=== PATIENT | male | born 1965 | race Caucasian/White ===

== ENCOUNTER 2022-05-11 00:23 | Emergency (ER) | payer BC ==
[2022-05-11 00:47] VITALS: BP 155/101
[2022-05-11 00:54] VITALS: BP 137/82
[2022-05-11 01:00] VITALS: BP 134/82
[2022-05-11 01:15] VITALS: BP 136/84
[2022-05-11 01:30] VITALS: BP 136/81
[2022-05-11 02:00] VITALS: BP 136/81
[2022-05-11 02:31] LABS: URINE BLOOD DIPSTICK LARGE (NEGATIVE); URINE COLOR BROWN; URINE KETONE TRACE mg/dL (NEGATIVE); URINE LEUK ESTERASE TRACE (NEGATIVE); URINE PROTEIN - DIPSTICK 100 mg/dL (NEG-TRACE); URINE UROBILINOGEN - DIPSTICK 0.2 E.U./dL (0.2)
[2022-05-11 02:45] LABS: URINE BILIRUBIN - DIPSTICK SMALL (NEGATIVE); URINE NITRITE - DIPSTICK POSITIVE (Negative)
[2022-05-11 02:46] LABS: URINE BACTERIA MANY hpf; URINE EPITHELIAL CELLS MODERATE EPI/hpf (0-FEW); URINE GLUCOSE - DIPSTICK NEGATIVE (NEGATIVE); URINE RBC >100 RBC/hpf (0-5)
[2022-05-11] MEDS ORDERED: CIPROFLOXACN500 MG PO (17:41)
== END 2022-05-11 02:00 | disposition home or self-care (01) | DRG 699 ==
LOC: ED 00:23
PROVIDERS: Emergency Medicine
DX: T83.098A Other mechanical complication of other urinary catheter, initial encounter (principal); N39.0 Urinary tract infection, site not specified; F17.200 Nicotine dependence, unspecified, uncomplicated; Y84.6 Urinary catheterization as the cause of abnormal reaction of the patient, or of later complication, without mention of misadventure at the time of the procedure

== ENCOUNTER 2022-05-11 17:26 | Emergency (ER) | payer BC ==
[2022-05-11] VITALS (18 sets, daily range): BP systolic 112–146; BP diastolic 60–87
[~2022-05-11] VITALS: Ht 172.7 cm; Wt 97.7 kg
[2022-05-11] MEDS ORDERED: CIPROFLOXACN500 MG PO (17:41)
[2022-05-11 18:41] LABS: HEMATOCRIT 42.5 % (39.0-50.0); HEMOGLOBIN 13.8 g/dl (14.0-18.0); IMMATURE GRANULOCYTES 0.2 % (0.0-5.0); MEAN CELL VOLUME 86.6 fL CALC (80.0-100.0); MEAN CORPUSCULAR HGB 28.1 pG CALC (26.0-32.0); MEAN CORPUSCULAR HGB CONC 32.5 g/dL CAL (32.0-36.0); NEUT# 8.76 thou/uL (1.82-7.42); RED BLOOD COUNT 4.91 mill/uL (4.70-6.10); RED CELL DISTRI WIDTH 14.7 % (11.5-15.5)
[2022-05-11 18:48] LABS: ALBUMIN 4.2 g/dL (3.2-5.0); ALKALINE PHOSPHATASE 86 u/l (38-126); ANION GAP 12 (6-22 (CALC)); BILIRUBIN, TOTAL 0.4 mg/dL (0.0-1.4); BUN 12 mg/dL (9-20); BUN/CREATININE RATIO 15 (12-20 (CALC)); CARBON DIOXIDE 26 mmol/l (22-30); CHLORIDE 105 mmol/l (95-108); CREATININE 0.8 mg/dL (0.7-1.3); GFR FOR AFR.AMER. > 60 ML/MIN (>=60 (CALC)); GFR OTHER RACES > 60 ML/MIN (>=60 (CALC)); POTASSIUM 3.9 mmol/l (3.5-5.1); SGOT/AST 23 u/l (17-59); SODIUM 139 mmol/l (137-146); TOTAL PROTEIN 7.5 g/dL (6.3-8.2)
== END 2022-05-11 22:06 | disposition short-term general hospital (02) | DRG 700 ==
LOC: ED 17:26
PROVIDERS: Family Medicine
DX: N28.89 Other specified disorders of kidney and ureter (principal); N39.0 Urinary tract infection, site not specified; F17.220 Nicotine dependence, chewing tobacco, uncomplicated; Z96.0 Presence of urogenital implants
CPT/HCPCS: Q9967

== ENCOUNTER 2024-11-15 12:43 | Inpatient (IN) | payer BC ==
[2024-11-15] VITALS (22 sets, daily range): BP systolic 88–126; BP diastolic 54–83
[~2024-11-15] VITALS: Ht 170.2 cm; Wt 57.8 kg
[~2024-11-15 12:43] MED LIST: BERBERINE PO; CARAFATE1 GM PO; CIPROFLOXACN500 MG PO; CURCUMIN PO; DILAUDID4 MG PO; ELIQUIS5 MG PO; INLYTA5 MG PO; LEVOTHYROXIN25 MC1 PO; MILK THISTLE1000 MG PO; PROCHLORPERAZINE5 M1 PO; PROTONIX40 M2 PO; SENNA/DSS1 TAB PO; XARELTO STARTER1 TAB PO
[2024-11-15] MEDS ORDERED: ASPIRIN 81 MG/TAB PO ONE (12:50)
[2024-11-15] MEDS ORDERED: NITROGLYCERIN 0.4 MG/TAB SL ONE (12:55)
[2024-11-15 13:07] LABS: BASO% 0.4 % (0-3); EOS% 0.7 % (0-8); IMMATURE GRANULOCYTES 0.2 % (0.0-5.0); LYMPH% 15.1 % (15-41); MEAN CELL VOLUME 87.5 fL CALC (80.0-100.0); MEAN CORPUSCULAR HGB CONC 33.2 g/dL CAL (32.0-36.0); MONO% 19.3 % (2-13); NEUT# 12.25 thou/uL (1.82-7.42); NEUT% 64.3 % (42-76); RED BLOOD COUNT 4.48 mill/uL (4.70-6.10); RED CELL DISTRI WIDTH 16.2 % (11.5-15.5)
[2024-11-15 13:10] LABS: HEMATOCRIT 39.2 % (39.0-50.0)
[2024-11-15 13:19] LABS: ALKALINE PHOSPHATASE 118 u/l (38-126); BUN 20 mg/dL (9-20); BUN/CREATININE RATIO 18 (12-20 (CALC)); CARBON DIOXIDE 25 mmol/l (22-30); CHLORIDE 93 mmol/l (95-108); CREATININE 1.1 mg/dL (0.7-1.3); ESTIMATED GFR 77 ML/MIN (>=90 (CALC)); POTASSIUM 3.8 mmol/l (3.5-5.1)
[2024-11-15 13:20] LABS: ALBUMIN 2.4 g/dL (3.2-5.0); ANION GAP 9 (6-22 (CALC)); BILIRUBIN, TOTAL 0.5 mg/dL (0.2-1.3); SGOT/AST 45 u/l (17-59); SODIUM 123 mmol/l (137-146)
[2024-11-15] MEDS ORDERED: AZITHROMYCIN 500 MG in SODIUM CHLORIDE 0.9% 500 ML IV ONE (13:55)
[2024-11-15] MEDS ORDERED: SODIUM CHLORIDE 0.9% 1,000 ML IV ONE ×2 (13:55→15:50)
[2024-11-15] MEDS ORDERED: cefTRIAXone SODIUM 2 GM in SODIUM CHLORIDE 0.9% 100 ML IV ONE (13:55)
--- NOTE | 2024-11-15 14:25 | NUR ---
PATIENT TO ER ROOM 10 WITH STEADY GAIT DUE TO CHEST PAIN THAT STARTED APPROX [id number] LAST NIGHT.
--- NOTE | 2024-11-15 15:00 | NUR ---
PATIENT LYING IN BED WITH HOB ELEVATED. SON AT BEDSIDE. NO ACUTE DISTRESS NOTED AT THIS TIME.
[2024-11-15] MEDS ORDERED: HYDROmorphone HCL 2 MG/AMP IV ONE (15:40)
[2024-11-15] MEDS ORDERED: ONDANSETRON HCl 4 MG/2 ML SDV IV ONE (15:40)
[2024-11-15] MEDS ORDERED: Polyethylene Glycol 3350 17 GM/PKT PO PRN (15:45)
[2024-11-15] MEDS ORDERED: MELATONIN 3 MG/TAB PO PRN (15:45)
[2024-11-15] MEDS ORDERED: LACTATED RINGER'S 1,000 ML IV PRN (15:45)
[2024-11-15] MEDS ORDERED: ACETAMINOPHEN 325 MG/TAB PO PRN (15:45)
[2024-11-15] MEDS ORDERED: IPRATROPIUM-Albuterol 0.5MG-2.5MG/3 ML NEB PRN (15:45)
--- NOTE | 2024-11-15 16:00 | NUR ---
NO ACUTE DISTRESS NOTED. BED LOCKED, IN LOW POSITION, CALL LIGHT WITHIN REACH.
--- NOTE | 2024-11-15 17:47 | NUR ---
PT ARRIVED TO THE UNIT VIA WHEELCHAIR TRANSPORT. PT AMBULATED TO THE BET WITH STAND BY ASSIST, RESPIRATIONS ARE EVEN AND UNLABORED, LUNGS ARE DIM THROUGHOUT, BOWEL SOUNDS ACTIVE, PEDAL PULSES PALPABLE TO TOUCH WITH 1+ NON-PITTING EDEMA NOTED TO RIGHT ANKLE. PT REPORTS FEELING PAIN WHEN HE INHALES.
--- NOTE | 2024-11-15 17:52 | NUR ---
PATIENT TO [facility] WITH TELE NUMBER [id number]
[2024-11-15] MEDS ORDERED: PIPERACILLIN Sodium-Tazobactam 3.375 GM in SODIUM CHLORIDE 0.9% 100 ML IV SCH (18:00)
[2024-11-15] MEDS ORDERED: CABOMETYX40 MG PO (18:02)
[2024-11-15] MEDS ORDERED: HYDROmorphone HCL 2 MG/TAB PO PRN (20:25)
[2024-11-15] MEDS ORDERED: ENOXAPARIN SODIUM 40 MG/0.4 ML SYR SC SCH (21:00)
[2024-11-16] VITALS (8 sets, daily range): BP systolic 91–107; BP diastolic 54–59
[2024-11-16 05:05] LABS: BASO% 0.5 % (0-3); EOS% 0.8 % (0-8); IMMATURE GRANULOCYTES 0.4 % (0.0-5.0); LYMPH% 14.2 % (15-41); MEAN CELL VOLUME 89.5 fL CALC (80.0-100.0); MEAN CORPUSCULAR HGB 29.6 pG CALC (26.0-32.0); MEAN CORPUSCULAR HGB CONC 33.1 g/dL CAL (32.0-36.0); MONO% 19.4 % (2-13); NEUT# 12.69 thou/uL (1.82-7.42); NEUT% 64.7 % (42-76); RED BLOOD COUNT 3.61 mill/uL (4.70-6.10); RED CELL DISTRI WIDTH 16.4 % (11.5-15.5)
[2024-11-16 05:09] LABS: HEMOGLOBIN 10.7 g/dl (14.0-18.0)
[2024-11-16 05:10] LABS: HEMATOCRIT 32.3 % (39.0-50.0)
[2024-11-16 05:34] LABS: BILIRUBIN, TOTAL 0.4 mg/dL (0.2-1.3); CREATININE 0.9 mg/dL (0.7-1.3); MAGNESIUM 1.4 mg/dL (1.6-2.3); POTASSIUM 4.2 mmol/l (3.5-5.1)
[2024-11-16 05:36] LABS: ALBUMIN 1.7 g/dL (3.2-5.0); TOTAL PROTEIN 3.9 g/dL (6.3-8.2)
--- NOTE | 2024-11-16 07:00 | NUR ---
RECEIVED REPORT FROM KODY. PT RESTING IN BED WITH IVF INFUSING TO RIGHT SIDED CHEST PORT ACCESSED YESTERDAY. PT PLEASANT WITH GENERALIZED WEAKNESS AND MALAISE. LUNGS DIMINISHED THROUGHOUT. ENC COUGH AND DEEP BREATHING EXERCISES. PT WITH GENERAL C/O PAIN DUE TO CHRONIC PAIN IN PAST. WILL MEDICATE AND CONTINUE TO MONITOR. TELE CHECKED AND NSR 82.
[2024-11-16] MEDS ORDERED: MAGNESIUM SULFATE HEPTAHYDRATE 100 ML IV SCH (09:00)
[2024-11-16] MEDS ORDERED: SODIUM CHLORIDE 0.9% 1,000 ML IV PRN (09:55)
[2024-11-16] MEDS ORDERED: PIPERACILLIN Sodium-Tazobactam 3.375 GM in SODIUM CHLORIDE 0.9% 100 ML IV SCH (12:00)
--- NOTE | 2024-11-16 12:00 | NUR ---
PT RESTING IN BED WITH MALAISE. P.T. ORDERED TO HELP WITH STRENGTHENING. FAMILY VISITING AT BEDSIDE AND UPDATED ON POC. IV ABX CONTINUE VIA RIGHT UPPER CHEST MEDIPORT ALONG WITH IVF. PAIN MANAGED WITH DILAUDID PO ORDERED. BILATERAL LE TEDS PLACED. WILL CONTINUE TO MONITOR.
[2024-11-16] MEDS ORDERED: LEVOTHYROXIN50 MCG PO (12:11)
[2024-11-16] MEDS ORDERED: PIPERACILLIN Sodium-Tazobactam 4.5 GM in SODIUM CHLORIDE 0.9% 100 ML IV SCH ×2 (13:00→20:00)
--- NOTE | 2024-11-16 15:04 | NUR ---
PT CONTINUES TO REST WITHOUT CHANGES TO REPORT. TOLERATING IV ABX.
--- NOTE | 2024-11-16 17:30 | NUR ---
PT REMAINS RESTING IN BED WITH FAMILY AT BEDSIDE. IC REMAINS PATENT AND NO CHANGES TO REPORT.
[2024-11-17] VITALS (7 sets, daily range): BP systolic 87–106; BP diastolic 51–68
[2024-11-17] MEDS ORDERED: PATIENT' OWN MED 1 EA DOSE PO SCH (04:00)
[2024-11-17 05:09] LABS: BASO% 0.4 % (0-3); EOS% 3.3 % (0-8); HEMATOCRIT 29.7 % (39.0-50.0); HEMOGLOBIN 10.1 g/dl (14.0-18.0); IMMATURE GRANULOCYTES 0.3 % (0.0-5.0); LYMPH% 11.6 % (15-41); MEAN CELL VOLUME 87.6 fL CALC (80.0-100.0); MEAN CORPUSCULAR HGB 29.8 pG CALC (26.0-32.0); MONO% 18.6 % (2-13); NEUT# 10.22 thou/uL (1.82-7.42); NEUT% 65.8 % (42-76); RED BLOOD COUNT 3.39 mill/uL (4.70-6.10); RED CELL DISTRI WIDTH 16.3 % (11.5-15.5)
[2024-11-17 05:28] LABS: ALBUMIN 1.4 g/dL (3.2-5.0); BILIRUBIN, TOTAL 0.4 mg/dL (0.2-1.3); POTASSIUM 3.9 mmol/l (3.5-5.1); TOTAL PROTEIN 3.6 g/dL (6.3-8.2)
[2024-11-17 05:30] LABS: MAGNESIUM 1.9 mg/dL (1.6-2.3)
[2024-11-17] MEDS ORDERED: LEVOTHYROXINE SODIUM 50 MCG/TAB PO SCH (06:00)
--- NOTE | 2024-11-17 20:00 | NUR ---
RECEIVED REPORT FROM DAY NURSE, PATIENT RESTING IN BED, FAMILY IN ROOM. C/O GEN PAIN PS 08/27 WILL MEDICATE, IV INFUSING WELL ON RT CHEST PORT NS # 100CC/HR, SHALLOW UNLABORED BREATHING, DIMINISHED LUNG SOUNDS, CALL LIGHT IN REACHED.
[2024-11-18] VITALS (9 sets, daily range): BP systolic 88–106; BP diastolic 50–68
--- NOTE | 2024-11-18 00:33 | NUR ---
BP RECHEKED MANUALLY , PATIENT NOT IN DISTRESS, CALL LIGHT IN REACHED.
--- NOTE | 2024-11-18 04:19 | NUR ---
PATIENT ASSISTED TO THE BATHROOM. VOIDED, ASSISTED BACK IN BED, DUE [employer] CURRENTLY INFUSING CALL LIGHTWITHIN REACHED.
[2024-11-18 05:56] LABS: ALBUMIN 1.5 g/dL (3.2-5.0); BILIRUBIN, TOTAL 0.5 mg/dL (0.2-1.3); MAGNESIUM 1.7 mg/dL (1.6-2.3); POTASSIUM 4.1 mmol/l (3.5-5.1); TOTAL PROTEIN 3.7 g/dL (6.3-8.2)
[2024-11-18 06:18] LABS: BASO% 0.7 % (0-3); EOS% 7.2 % (0-8); HEMATOCRIT 31.4 % (39.0-50.0); HEMOGLOBIN 10.7 g/dl (14.0-18.0); IMMATURE GRANULOCYTES 0.2 % (0.0-5.0); LYMPH% 15.3 % (15-41); MEAN CELL VOLUME 87.2 fL CALC (80.0-100.0); MEAN CORPUSCULAR HGB 29.7 pG CALC (26.0-32.0); MEAN CORPUSCULAR HGB CONC 34.1 g/dL CAL (32.0-36.0); MONO% 16.4 % (2-13); NEUT# 8.67 thou/uL (1.82-7.42); NEUT% 60.2 % (42-76); RED BLOOD COUNT 3.6 mill/uL (4.70-6.10); RED CELL DISTRI WIDTH 16.4 % (11.5-15.5)
--- NOTE | 2024-11-18 07:27 | NUR ---
SHIFT CHANGE REPORT, PT SLEEPING SOUNDLY IN LEFT-SIDED POSITION, NO SIGN DISCOMFORT, TELE MONITOR IN PLACE, CALL TORREZ IN REACH AND BED LOCKED IN LOWEST POSITION.
--- NOTE | 2024-11-18 12:00 | NUR ---
SLEEPING, BREATHING STABLE, CALL TORREZ IN REACH.
--- NOTE | 2024-11-18 16:00 | NUR ---
CONDITION STABLE, FAMILY IN ROOM
--- NOTE | 2024-11-18 20:00 | NUR ---
PT RESTING FAMILY AT BEDSIDE NO DISTRESS NOTED. PT STATED DILAUDID PO HELPED WITH HIS PAIN. PT HAS A RIGHT CHEST PORT WITH CONTINUES FLUIDS GOING. SKIN INTACT SCATTERED BRUISING. CALL LIGHT WITHIN REACH. PLAN OF CARE ONGOING.
[2024-11-18] MEDS ORDERED: SODIUM CHLORIDE 0.9% 10 ML SYR IV PRN (21:50)
[2024-11-18] MEDS ORDERED: HEPARIN SODIUM FLUSH (PORCINE) 100 UNITS/ML 3 ML SYR IV PRN (21:50)
[2024-11-18] MEDS ORDERED: SODIUM CHLORIDE 0.9% 10 ML SYR IV SCH (21:50)
--- NOTE | 2024-11-19 00:15 | NUR ---
PT RESTING NO DISTRESS NOTED ON EXAM. CALL LIGHT WITHIN REACH. IV FLUIDS ONGOING.
--- NOTE | 2024-11-19 04:00 | NUR ---
PT RESTING NO DISTRESS NOTED ON EXAM. RIGHT CHEST PORT FLUSHED AND LAB TUBES COLLECTED. IV ABX GIVEN. CALL LIGHT WITHIN REACH. PLAN OF CARE ONGOING.
[2024-11-19 05:01] VITALS: BP 100/53
[2024-11-19 05:05] LABS: ALBUMIN 1.4 g/dL (3.2-5.0); BILIRUBIN, TOTAL 0.4 mg/dL (0.2-1.3); CREATININE 0.9 mg/dL (0.7-1.3); MAGNESIUM 1.7 mg/dL (1.6-2.3); POTASSIUM 3.9 mmol/l (3.5-5.1); TOTAL PROTEIN 3.5 g/dL (6.3-8.2)
[2024-11-19 05:18] LABS: BASO% 0.7 % (0-3); EOS% 9.5 % (0-8); HEMATOCRIT 30.1 % (39.0-50.0); HEMOGLOBIN 10.3 g/dl (14.0-18.0); IMMATURE GRANULOCYTES 0.2 % (0.0-5.0); LYMPH% 15.1 % (15-41); MEAN CELL VOLUME 87.5 fL CALC (80.0-100.0); MEAN CORPUSCULAR HGB 29.9 pG CALC (26.0-32.0); MEAN CORPUSCULAR HGB CONC 34.2 g/dL CAL (32.0-36.0); MONO% 14.3 % (2-13); NEUT# 7.39 thou/uL (1.82-7.42); NEUT% 60.2 % (42-76); RED BLOOD COUNT 3.44 mill/uL (4.70-6.10); RED CELL DISTRI WIDTH 16.6 % (11.5-15.5)
[2024-11-19 07:31] VITALS: BP 93/52
--- NOTE | 2024-11-19 08:00 | NUR ---
Patient sitting in bed eating breakfast with son at bedside.
--- NOTE | 2024-11-19 09:00 | NUR ---
Patient and son requesting to discuss PO pain medication order with physician as prescribed PO Dilaudid 4mg "not working" per patient and son.
[2024-11-19 11:15] VITALS: BP 93/54
--- NOTE | 2024-11-19 12:00 | NUR ---
Patient watching television.
[2024-11-19] MEDS ORDERED: LEVOFLOXACIN500MG PO (12:54)
[2024-11-19 15:11] VITALS: BP 112/68
--- NOTE | 2024-11-19 16:29 | NUR ---
Discharge instructions reviewed with patient and family whom verbalized understanding. Patient's right chest port de-accessed by TOLU Rae.
--- NOTE | 2024-11-20 13:38 | NUR ---
Discharge follow up call completed 11/20/24. Patient states he is feeling a little better and is resting , trying to get stronger. Patient is taking prescribed medication as directed. Patient states he i-will contact his PCP to schedule a follow up appointment. No needs or concrns are verbalized by patient at this time.
== END 2024-11-19 16:58 | disposition home or self-care (01) | DRG 871 ==
LOC: ED 12:43 → ED-I 14:20 → ED 15:41 → MS2 15:42
PROVIDERS: Family Medicine; Nurse Practitioner Family; ADMIT Internal Medicine; ATTEND Internal Medicine
DX: A41.9 Sepsis, unspecified organism (principal); J18.9 Pneumonia, unspecified organism; C64.1 Malignant neoplasm of right kidney, except renal pelvis; C79.51 Secondary malignant neoplasm of bone; C78.00 Secondary malignant neoplasm of unspecified lung; R65.20 Severe sepsis without septic shock; E03.9 Hypothyroidism, unspecified; Z90.5 Acquired absence of kidney; Z86.711 Personal history of pulmonary embolism; Z79.01 Long term (current) use of anticoagulants; Z92.21 Personal history of antineoplastic chemotherapy; Z79.69 Long term (current) use of other immunomodulators and immunosuppressants; Z20.822 Contact with and (suspected) exposure to COVID-19
CPT/HCPCS: J0456; J0696; J1171; J1650; J2020; J2405; J2543; J3475; Q9967